=== PATIENT | female | born 1980 | race Caucasian/White ===

== ENCOUNTER 2016-10-11 16:32 | Emergency (ER) | payer OTHER ==
[~2016-10-11] VITALS: Ht 165.1 cm; Wt 57.2 kg
--- NOTE | 2016-10-11 17:20 | PD ---
HPI Chief Complaint Vaginal bleeding Date Seen: Oct 11, 2016 (Tabitha Peterson MD R1) Travel History International Travel<30 Days: No Contact w/Intl Traveler<30Days: No Known Affected Area: No (Tabitha Peterson MD) History of Present Illness HPI Patient is a 36 year old at 18/3 weeks gestation that presents to the [facility] ED with a chief complaint of vaginal bleeding that began as spotting yesterday and progressively got worse. Patient has a history of spotting during this due to a subchorionic hemorrhage that was confirmed on ultrasound. However, on her way to the ED today, she felt an increased flow that soaked her underwear all the way through her jeans. Patient states that she has also been having cramps that began yesterday, became pretty intense, and then went away. She denies trauma of any kind and states that her last sexual encounter was 6 weeks ago. Patient denies fever, chills, nausea, vomiting, diarrhea, chest pain, shortness of breath, upper respiratory symptoms, dysuria. Patient gets her care with Dr. Polo at [facility] in [place], [place] and is in the process of switching to Dr. Lizama in [place]. All her labs have been negative or within normal limits so far. Para: 2 : 4 Miscarriage: 1 : 0 (Tabitha Peterson MD) History Past Medical History Medical History: Denies Significant Hx (Tabitha Peterson MD) Obstetric History Obstetric History 012 -First 2 pregnancies were full-term at at least 39 weeks -Third was a miscarriage, but no fetus was seen on ultrasound (Tabitha Peterson MD) Past Surgical History Narrative Surgical Laparoscopic appendectomy when she was 17 years old (Tabitha Peterson MD) Family History Narrative Family History No family history of diabetes or hypertension (Tabitha Peterson MD) Social History Alcohol Use: No Tobacco Use: No Substance Abuse: No (Tabitha Peterson MD) Allergies-Medications (Allergen,Severity, Reaction): Coded Allergies: No Known Allergies (Unverified , 10/11/16) Review of Systems General / Constitutional: No: Fever, Chills Eyes: No: Visual changes HENT: No: Headaches Cardiovascular: No: Chest Pain or Discomfort Respiratory: No: Cough, Short of Breath Gastrointestinal: No: Nausea, Vomiting, Diarrhea Genitourinary: Vaginal Bleeding, No: Dysuria Musculoskeletal: Cramping Neurologic: No: Headache (Tabitha Peterson MD R1) Physical Exam Narrative GENERAL: Well-nourished, well-developed patient. SKIN: Warm and dry. HEAD: Normocephalic and atraumatic. EYES: No scleral icterus. No injection or drainage. ENT: No nasal drainage noted. Mucous membranes pink. Airway patent. NECK: Supple, trachea midline. No JVD. CARDIOVASCULAR: Regular rate and rhythm without murmurs, gallops, or rubs. RESPIRATORY: Breath sounds equal bilaterally. No accessory muscle use. BREASTS: Bilateral exam showed no masses , no retractions, no nipple discharge. ABDOMEN/GI: Abdomen soft, non-tender, bowel sounds present, no rebound, no guarding Gravid to 18 weeks size GENITOURINARY: External Genitalia: intact and normal in appearance Cervix: closed on US and speculum exam, no active bleeding from the cervical os Dilatation: 0cm Membranes: intact Uterine Contractions: none FHT's: Present in the 150s on Doppler EXTREMITIES: No cyanosis or edema. BACK: Nontender without obvious deformity. No CVA tenderness. NEUROLOGICAL: Awake and alert. Motor and sensory grossly within normal limits. Five out of 5 muscle strength in all muscle groups. Normal speech. (Tabitha Peterson MD R1) Data Data Vital Signs Reviewed: Yes (Tabitha Peterson MD R1) [facility] Medical Record Reviewed: Yes Interpretation(s) 36 year old at 18/3 weeks gestation presents with vaginal bleeding. Plan Intrauterine - heart tones in the 150s on Doppler -Ultrasound showed a hematoma anterior and adjacent to the placenta, good growth and movement, normal ISIDRO, closed cervix - Cervical exam: closed on US and speculum exam, no active bleeding from the cervical os Plan -Discharge home -No strenuous activity -Pelvic rest - no sexual activity, no tampons, no douches -Pt understands that she will continue to have intermittent bleeding and spotting throughout the (Tabitha Peterson MD R1) Medical Record Reviewed: Yes Attending Attestation The exam, history, and the medical decision-making described in the above note were completed with the assistance of the resident provider. I reviewed and agree with the findings presented. I attest that I had a [id number] encounter with the patient on the same day, and personally performed and documented my assessment and findings in the medical record. (Blayne Lerma MD) Diagnosis Diagnosis: Primary Impression: Vaginal bleeding in patient at less than 20 weeks gestation Additional Impression: Subchorionic hemorrhage Disposition: 01 DISCHARGE HOME Condition: Stable Eko,Tabitha Garrido MD R1 Oct 11, 2016 17:20 Blayne Lerma MD Oct 11, 2016 18:56
== END 2016-10-11 19:02 | disposition home or self-care (01) ==
LOC: HOBED 16:32
DX: O46.92 Antepartum hemorrhage, unspecified, second trimester (principal)
CPT/HCPCS: 76816

== ENCOUNTER 2016-10-25 10:05 | Inpatient (IN) | payer OTHER ==
[~2016-10-25] VITALS: Ht 165.1 cm; Wt 59.0 kg
--- NOTE | 2016-10-25 11:50 | PD ---
HPI Chief Complaint vaginal bleeding Date Seen: October 25, 2016 Time Seen: 10:30 Travel History International Travel<30 Days: No Contact w/Intl Traveler<30Days: No Known Affected Area: No History of Present Illness HPI 36 yo female [id number] at 20w [address] Lizama's office due to watery/ bloody discharge and possible rupture of membranes. Patient c/o significant vaginal bleeding for the past 4 weeks, the last 2 weeks have been very heavy, at times going through 5-6 pads per day. Last sonogram 2 weeks ago noted an anterior placenta subchorionic bleed but otherwise normal with adequate cervix length. Denies abdominal or pelvic pain. Para: 2 : 4 : 1 History Past Medical History Medical History: Denies Significant Hx Obstetric History Obstetric History x 2 Past Surgical History Narrative Surgical appendectomy Family History Family History: Negative Social History Alcohol Use: No Tobacco Use: No Substance Abuse: No Allergies-Medications (Allergen,Severity, Reaction): Coded Allergies: No Known Allergies (Unverified , 10/11/16) Review of Systems Except as stated in HPI: all other systems reviewed are Neg Physical Exam Narrative GENERAL: Well-nourished, well-developed patient. SKIN: Warm and dry. HEAD: Normocephalic and atraumatic. EYES: No scleral icterus. No injection or drainage. ENT: No nasal drainage noted. Mucous membranes pink. Airway patent. RESPIRATORY: Breath sounds equal bilaterally. No accessory muscle use. BREASTS: Bilateral exam showed no masses , no retractions, no nipple discharge. ABDOMEN/GI: Abdomen soft, non-tender, bowel sounds present, no rebound, no guarding Gravid to [-20] weeks size Fundal Height: [20-] GENITOURINARY: External Genitalia: intact and normal in appearance BUS glands: [nl-] Cervix: [-cl] Dilatation: [-] Effacement: [-] Station: [-] Presentation: [-] Membranes: [intact or ruptured] amnisure positive Uterine Contractions: [-] FHT's: 152 EXTREMITIES: No cyanosis or edema. BACK: Nontender without obvious deformity. No CVA tenderness. NEUROLOGICAL: Awake and alert. Motor and sensory grossly within normal limits. Five out of 5 muscle strength in all muscle groups. Normal speech. Data Data Vital Signs Reviewed: Yes Orders Vital Signs (Adult) .ON ADMISSION (10/25/16 10:43) ^ Labor Status (10/25/16 10:43) Us Ob Repeat/Fu(Growth) (10/25/16 10:43) Cbc No Diff, Includes Plts (10/25/16 11:23) Type And Screen (10/25/16 11:23) Labs Sonogram performed - formal reading still pending. Overall amniotic fluid appears low but difficult to visualize due to significant amounts of blood in amniotic cavity. Large amount of blood clots are seen in lower uterine segment. FHT 152 Vertex presentation. Biometrics still pending. MDM Medical Record Reviewed: Yes Plan 20 weeks gestation with subchorionic and subamniotic hemorrhage. Possible rupture of membranes with positive amnisure and clinically decreased amniotic fluid on ultrasound Will admit for [address] Lizama notified of admission Diagnosis Diagnosis: Primary Impression: Vaginal bleeding during , antepartum Additional Impression: Decreased amniotic fluid Jessy Carvajal MD October 25, 2016 11:50
[2016-10-25] MEDS ORDERED: ONDANSETRON ODT 4 MG TAB PO PRN (12:00)
[2016-10-25] MEDS ORDERED: SODIUM CHLORIDE 0.9% FLUSH 10 ML FLUSH IV FLUSH PRN (12:00)
[2016-10-25] MEDS ORDERED: ACETAMINOPHEN 325 MG TAB PO PRN (12:00)
[2016-10-25] MEDS ORDERED: ZOLPIDEM TARTRATE 5 MG TAB PO PRN (12:00)
[2016-10-25 12:14] LABS: MEAN CELL VOLUME 89.8 FL (80.0-100.0); MEAN CORPUSCULAR HEMOGLOBIN 31.3 PG (27.0-34.0); MEAN CORPUSCULAR HGB CONC 34.9 % (32.0-36.0); PLATELET COUNT 186 TH/MM3 (150-450); RED BLOOD COUNT 3.57 MIL/MM3 (4.00-5.30); RED CELL DISTRIBUTION WIDTH 13.2 % (11.6-17.2); REVIEW FLAG FINAL; WHITE BLOOD COUNT 11.7 TH/MM3 (4.0-11.0)
[2016-10-25 17:39] VITALS: RESP 20; TEMP 99.6
[2016-10-25 19:41] VITALS: BP 99/65; PULSE 87
[2016-10-25 19:43] VITALS: RESP 18; TEMP 98
[2016-10-25 19:50] VITALS: PULSE 81
[2016-10-25 19:55] VITALS: PULSE 81
[2016-10-26] VITALS (12 sets, daily range): BP systolic 79–96; BP diastolic 49–56; PULSE 75–96; RESP 16–18; TEMP 98.1–98.2
[2016-10-26 05:56] LABS: AUTOMATED NEUTROPHIL # 6.1 TH/MM3 (1.8-7.7); BASOPHIL % 0.2 % (0.0-2.0); EOSINOPHIL # 0.1 TH/MM3 (0-0.4); EOSINOPHIL % 1.1 % (0.0-4.0); HEMATOCRIT 23.4 % (35.0-46.0); HEMO FLAGS DIFF FINAL; LYMPH % 19.7 % (9.0-44.0); LYMPHOCYTE # 1.7 TH/MM3 (1.0-4.8); MEAN CELL VOLUME 88.9 FL (80.0-100.0); MEAN CORPUSCULAR HEMOGLOBIN 31.6 PG (27.0-34.0); MEAN CORPUSCULAR HGB CONC 35.5 % (32.0-36.0); MONO % 7.3 % (0.0-8.0); NEUT % 71.7 % (16.0-70.0); PLATELET COUNT 184 TH/MM3 (150-450); RED BLOOD COUNT 2.63 MIL/MM3 (4.00-5.30); RED CELL DISTRIBUTION WIDTH 12.8 % (11.6-17.2); WHITE BLOOD COUNT 8.5 TH/MM3 (4.0-11.0)
--- NOTE | 2016-10-26 07:30 | HHI.PR ---
Subjective Remarks Doing ok, Still bleeding overnite and used 3 pads that were not soaked, No pain today. Had good BM yesterday. Doing bedrest well, Objective Vital Signs Date Time Temp Pulse Resp B/P Pulse Ox O2 Delivery O2 Flow Rate FiO2 10/26/16 00:33 18 10/26/16 00:28 80 79/50 10/25/16 19:55 81 10/25/16 19:55 81 10/25/16 19:50 81 10/25/16 19:50 81 10/25/16 19:43 98.0 18 10/25/16 19:41 87 99/65 10/25/16 17:39 20 10/25/16 17:39 99.6 Result Diagram: 10/26/16 0448 Other Results Chest is clear CV RRR Abd is soft and NT, Fundus is nice and soft and non tender. Ext no CCE Assessment and Plan Assessment and Plan IUP at 20/4 Severe acute anemia due to blood loss. will start venofer and some IVF now. Will start pericolace to avoid constipation. Will continue bedrest and consider transfusion if H/H goes down. Discussed hysterotomy if bleeding becomes severe. Discussed Condition With Patient..Nurse Rea Discharge Planning Does not meet criteria. She will be here for awhile as this is a serious problem. Claribel Lizama MD October 26, 2016 07:30
[2016-10-26] MEDS: LACTATED RINGER'S 1000 ML INJ 1,000 ML IV SCH ×2 (07:58→17:30)
[2016-10-26] MEDS: SODIUM CHLORIDE 0.9% FLUSH 10 ML FLUSH IV FLUSH SCH ×2 (07:58→21:00)
[2016-10-26] MEDS ORDERED: IBUP-232 PO (08:02)
[2016-10-26] MEDS: MULTIVIT/MIN/PREN/FOL AC/IRON PRENATAL TAB PO SCH ×2 (09:00→10:18)
[2016-10-26] MEDS: IRON SUCROSE INJ 200 MG in SODIUM CHLORIDE 0.9% INJ 100 ML IV SCH (10:18)
[2016-10-26] MEDS: DOCUSATE SODIUM 50 MG/SENNA 8.6 MG TAB PO PRN (10:55)
[2016-10-26 17:44] LABS: HEMATOCRIT 23.5 % (35.0-46.0)
[2016-10-27] VITALS: BP 98/58; PULSE 88; RESP 18; TEMP 98.4
[2016-10-27 04:00] VITALS: BP 100/58
[2016-10-27 04:14] VITALS: BP 87/48; PULSE 81
[2016-10-27 04:18] VITALS: BP 90/47; PULSE 79
[2016-10-27 04:24] VITALS: RESP 18; TEMP 98.6
[2016-10-27] MEDS: SODIUM CHLORIDE 0.9% FLUSH 10 ML FLUSH IV FLUSH SCH ×2 (09:00→21:00)
[2016-10-27] MEDS: IRON SUCROSE INJ 200 MG in SODIUM CHLORIDE 0.9% INJ 100 ML IV SCH (09:24)
[2016-10-27] MEDS: MULTIVIT/MIN/PREN/FOL AC/IRON PRENATAL TAB PO SCH (09:24)
[2016-10-27] MEDS: DOCUSATE SODIUM 50 MG/SENNA 8.6 MG TAB PO PRN (10:57)
[2016-10-27 11:32] LABS: HEMATOCRIT 26.2 % (35.0-46.0); MEAN CELL VOLUME 90.5 FL (80.0-100.0); MEAN CORPUSCULAR HEMOGLOBIN 30.8 PG (27.0-34.0); PLATELET COUNT 211 TH/MM3 (150-450); REVIEW FLAG FINAL; WHITE BLOOD COUNT 9.3 TH/MM3 (4.0-11.0)
[2016-10-27] MEDS: LACTATED RINGER'S 1000 ML INJ 1,000 ML IV SCH ×2 (13:15→13:30)
[2016-10-28] MEDS: LACTATED RINGER'S 1000 ML INJ 1,000 ML IV SCH ×3 (03:35→21:40)
[2016-10-28] MEDS: SODIUM CHLORIDE 0.9% FLUSH 10 ML FLUSH IV FLUSH SCH ×2 (09:00→21:00)
[2016-10-28] MEDS: MULTIVIT/MIN/PREN/FOL AC/IRON PRENATAL TAB PO SCH (09:15)
[2016-10-28] MEDS: IRON SUCROSE INJ 200 MG in SODIUM CHLORIDE 0.9% INJ 100 ML IV SCH (09:15)
--- NOTE | 2016-10-28 12:27 | PD.OB.ANTE ---
Subjective Interval History relatively quiet night did fill one pad quickly and no active bleeding thereafter receiving venofir daily staying in bed and using bed munoz had bowel movement today Antepartum ROS: Denies: New complaints, Loss of fluid, Vaginal bleeding, movement normal, Contractions, Other Objective Physical Exam GENERAL: Well-nourished, well-developed patient. CARDIOVASCULAR: Regular rate and rhythm without murmurs, gallops, or rubs. RESPIRATORY: Breath sounds equal bilaterally. No accessory muscle use. ABDOMEN/GI: Abdomen soft, non-tender. Fundus: [-] GENITOURINARY: External Genitalia: intact and normal in appearance strip reassuring EXTREMITIES: No cyanosis or edema, non-tender, without signs of DVT. Assessment and Plan Assessment and Plan maintain status quo at this point. Goal to get to viability Rekha Tejeda MD October 28, 2016 12:27
[2016-10-28] MEDS: DOCUSATE SODIUM 50 MG/SENNA 8.6 MG TAB PO PRN (12:51)
[2016-10-28 13:48] LABS: HEMATOCRIT 23.1 % (35.0-46.0); REVIEW FLAG FINAL
[2016-10-28] MEDS ORDERED: LIDOCAINE HCL 1% 50 ML VIAL ONE (15:31)
[2016-10-29] VITALS (7 sets, daily range): BP systolic 90–98; BP diastolic 50–62; PULSE 79–88; RESP 16–18; TEMP 97.8–98.1
[2016-10-29 06:38] LABS: HEMATOCRIT 31.5 % (35.0-46.0); REVIEW FLAG FINAL
[2016-10-29] MEDS: SODIUM CHLORIDE 0.9% FLUSH 10 ML FLUSH IV FLUSH SCH ×2 (09:00→21:00)
[2016-10-29] MEDS: MULTIVIT/MIN/PREN/FOL AC/IRON PRENATAL TAB PO SCH (09:35)
--- NOTE | 2016-10-29 09:42 | PD.OB.ANTE ---
Subjective Interval History quiet night received 2 units yesterday and feels better Objective Lab & Micro Results Test 10/28/16 10/28/16 10/29/16 13:35 15:20 05:42 Hemoglobin 8.0 GM/DL 10.8 GM/DL Hematocrit 23.1 % 31.5 % Blood Type O POSITIVE Antibody Screen NEGATIVE Crossmatch Leukocyte-Reduced Red Blood Cells Blood Bank Comment Physical Exam GENERAL: Well-nourished, well-developed patient. CARDIOVASCULAR: Regular rate and rhythm without murmurs, gallops, or rubs. RESPIRATORY: Breath sounds equal bilaterally. No accessory muscle use. ABDOMEN/GI: Abdomen soft, non-tender. fundus c/w dates Membranes: [-] Uterine Contractions: [-] strip with out decels Decels: [-] EXTREMITIES: No cyanosis or edema, non-tender, without signs of DVT. Assessment and Plan Assessment and Plan maintain status quo at this point. Hgb good post transfusion continue bedrest Rekha Tejeda MD October 29, 2016 09:42
[2016-10-29] MEDS: DOCUSATE SODIUM 50 MG/SENNA 8.6 MG TAB PO PRN ×2 (12:02→21:38)
[2016-10-29] MEDS: LACTATED RINGER'S 1000 ML INJ 1,000 ML IV SCH ×2 (18:10→21:38)
[2016-10-30] VITALS (12 sets, daily range): BP systolic 79–100; BP diastolic 49–59; PULSE 72–87; RESP 16–18; TEMP 98–98.6
[2016-10-30] MEDS: LACTATED RINGER'S 1000 ML INJ 1,000 ML IV SCH ×3 (01:15→22:51)
[2016-10-30] MEDS: SODIUM CHLORIDE 0.9% FLUSH 10 ML FLUSH IV FLUSH SCH ×2 (09:00→23:27)
[2016-10-30] MEDS: MULTIVIT/MIN/PREN/FOL AC/IRON PRENATAL TAB PO SCH (10:18)
--- NOTE | 2016-10-30 17:54 | PD.OB.ANTE ---
Subjective Interval History Doing well, good movement. Bleeding is minimal now Objective Vital Signs Vital Signs Date Time Temp Pulse Resp B/P Pulse Ox O2 Delivery O2 Flow Rate FiO2 10/30/16 16:00 98.0 79 18 10/30/16 16:00 92/53 10/30/16 11:40 98.6 79 18 94/53 10/30/16 08:48 98.2 16 10/30/16 08:43 72 100/59 10/30/16 04:29 18 10/30/16 04:17 74 85/52 10/29/16 23:00 18 10/29/16 22:38 98.1 10/29/16 22:38 79 90/51 10/29/16 21:00 18 10/29/16 20:22 88 98/62 Physical Exam GENERAL: Well-nourished, well-developed patient. CARDIOVASCULAR: Regular rate and rhythm without murmurs, gallops, or rubs. RESPIRATORY: Breath sounds equal bilaterally. No accessory muscle use. ABDOMEN/GI: Abdomen soft, non-tender. Fundus: [non tender and soft] FHT's: are present. EXTREMITIES: No cyanosis or edema, non-tender, without signs of DVT. Assessment and Plan Assessment and Plan Continue bedrest For a MFM consultation tomorrow Consider d/c home when stable of keep in house til 24 weeks and then transfer. Claribel Lizama MD October 30, 2016 17:54
[2016-10-31] VITALS (8 sets, daily range): BP systolic 89–102; BP diastolic 58–65; PULSE 77–102; RESP 16–18; TEMP 97.9–98.1
[2016-10-31] MEDS: SODIUM CHLORIDE 0.9% FLUSH 10 ML FLUSH IV FLUSH SCH (09:00)
[2016-10-31] MEDS: MULTIVIT/MIN/PREN/FOL AC/IRON PRENATAL TAB PO SCH (10:00)
[2016-10-31] MEDS: DOCUSATE SODIUM 50 MG/SENNA 8.6 MG TAB PO PRN (10:00)
[2016-10-31] MEDS: LACTATED RINGER'S 1000 ML INJ 1,000 ML IV SCH ×2 (11:20→17:15)
[2016-10-31] MEDS ORDERED: MISOPROSTOL 200 MCG TAB VAGINAL ONE (13:00)
--- NOTE | 2016-10-31 13:09 | HHI.PR ---
Subjective Remarks Doing ok, Still bleeding overnite and used one pad Saw perinatologist this am and recommended delivery. Objective Vital Signs Date Time Temp Pulse Resp B/P Pulse Ox O2 Delivery O2 Flow Rate FiO2 10/31/16 12:54 97.9 18 10/31/16 12:37 77 97/58 10/31/16 08:38 18 10/31/16 08:30 84 102/60 10/31/16 07:24 89/65 10/31/16 07:24 80 10/31/16 07:23 98.1 18 10/30/16 22:51 74 87/54 10/30/16 22:50 79/49 10/30/16 20:31 18 10/30/16 20:10 86 95/55 10/30/16 20:10 98.1 10/30/16 20:09 87 10/30/16 20:04 83 10/30/16 16:00 98.0 79 18 10/30/16 16:00 92/53 Result Diagram: 10/29/16 0542 Objective Remarks Chest is clear CV RRR Abd is soft and non tender. ext no CCE Assessment and Plan Assessment and Plan IUP at 20/5 Severe bleed and perinatologist recommends delivery Long discussion about this. She needs some time to think about this. Will proceed with delivery. Claribel Lizama MD October 31, 2016 13:09
[2016-10-31 13:27] LABS: AUTOMATED NEUTROPHIL # 8.2 TH/MM3 (1.8-7.7); BASOPHIL % 0.1 % (0.0-2.0); EOSINOPHIL # 0.1 TH/MM3 (0-0.4); EOSINOPHIL % 0.6 % (0.0-4.0); HEMATOCRIT 33.3 % (35.0-46.0); HEMO FLAGS DIFF FINAL; LYMPH % 12.9 % (9.0-44.0); LYMPHOCYTE # 1.3 TH/MM3 (1.0-4.8); MEAN CELL VOLUME 92.2 FL (80.0-100.0); MEAN CORPUSCULAR HEMOGLOBIN 30.3 PG (27.0-34.0); MEAN CORPUSCULAR HGB CONC 32.9 % (32.0-36.0); MONO % 5.6 % (0.0-8.0); NEUT % 80.8 % (16.0-70.0); PLATELET COUNT 190 TH/MM3 (150-450); RED BLOOD COUNT 3.61 MIL/MM3 (4.00-5.30); RED CELL DISTRIBUTION WIDTH 14.4 % (11.6-17.2); WHITE BLOOD COUNT 10.1 TH/MM3 (4.0-11.0)
[2016-11-01] VITALS (8 sets, daily range): BP systolic 91–100; BP diastolic 49–60; PULSE 69–99; RESP 18–19; TEMP 97.8–98.2
[2016-11-01] MEDS: LACTATED RINGER'S 1000 ML INJ 1,000 ML IV SCH ×4 (03:15→15:30)
[2016-11-01] MEDS: MISOPROSTOL 200 MCG TAB VAGINAL SCH ×2 (06:00→10:05)
--- NOTE | 2016-11-01 07:30 | HHI.PR ---
Subjective Remarks Doing ok, Still bleeding small amount Slept well, Ready to get the process started. No pain or contractions now Objective Vital Signs Date Time Temp Pulse Resp B/P Pulse Ox O2 Delivery O2 Flow Rate FiO2 11/01/16 06:23 76 91/52 11/01/16 06:15 98.2 18 11/01/16 00:30 98.0 99 18 11/01/16 00:30 69 99/60 10/31/16 19:58 102 98/62 10/31/16 19:58 16 10/31/16 14:00 98.0 10/31/16 12:54 97.9 18 10/31/16 12:37 77 97/58 10/31/16 08:38 18 10/31/16 08:30 84 102/60 Result Diagram: 10/31/16 1255 Objective Remarks Abd is soft and non tender. ext no CCE Assessment and Plan Assessment and Plan IUP at 20/6 Will proceed with delivery. Cytotec given this am and will repeat q4h. Claribel Lizama MD November 01, 2016 07:30
[2016-11-01] MEDS: MULTIVIT/MIN/PREN/FOL AC/IRON PRENATAL TAB PO SCH (09:00)
[2016-11-01] MEDS: SODIUM CHLORIDE 0.9% FLUSH 10 ML FLUSH IV FLUSH SCH ×3 (09:00→21:00)
[2016-11-01] MEDS ORDERED: MISOPROSTOL 200 MCG TAB VAGINAL ONE (14:00)
[2016-11-01] MEDS ORDERED: MISOPROSTOL 200 MCG TAB PO ONE (15:00)
[2016-11-01] MEDS ORDERED: MISOPROSTOL 200 MCG TAB VAGINAL SCH (23:00)
[2016-11-02] MEDS: LACTATED RINGER'S 1000 ML INJ 1,000 ML IV SCH ×2 (08:32→14:40)
[2016-11-02] MEDS: MULTIVIT/MIN/PREN/FOL AC/IRON PRENATAL TAB PO SCH (09:00)
[2016-11-02] MEDS: MISOPROSTOL 200 MCG TAB PO SCH ×2 (09:00→14:39)
[2016-11-02] MEDS ORDERED: MISOPROSTOL 200 MCG TAB PO SCH (14:00)
[2016-11-02] MEDS ORDERED: fentaNYL 2MCG-BUPIV 0.125% INJ 100 ML ONE (14:43)
[2016-11-02] MEDS ORDERED: ePHEDrine/NS 25 MG/5 ML SYR ONE (15:00)
[2016-11-02] MEDS ORDERED: ePHEDrine/NS 25 MG/5 ML SYR IV PRN (15:45)
[2016-11-02] MEDS ORDERED: DO NOT ADMINISTER ANTICOAGULANTS PRN (16:00)
[2016-11-02] MEDS ORDERED: NO SYSTEM NARCOTICS PRN (16:00)
[2016-11-02] MEDS ORDERED: fentaNYL 2MCG-BUPIV 0.125% 100 ML EPIDURAL SCH (16:00)
[2016-11-02 16:45] VITALS: RESP 16
[2016-11-02] MEDS ORDERED: OXYTOCIN 30 UNITS-500ML PREMIX 500 ML ONE (17:39)
--- NOTE | 2016-11-02 19:48 | PD.OB.DELI ---
Anesthesia: Epidural Episiotomy: None Vaginal Delivery: Normal Presentation: Vertex Nuchal Cord: None Delayed cord clamping (45 sec): No : Female One Minute : 0 Five Minute : 0 Weight: 357 gm Placenta: Spontaneous delivery Laceration: No lacerations Masoud Bruner II, MD November 02, 2016 19:48
[2016-11-02] MEDS ORDERED: WITCH HAZEL 50%/GLYCERIN 12.5% 40 PAD JAR TOPICAL PRN (20:30)
[2016-11-02] MEDS ORDERED: ALUMINUM/MAGNESIUM/SIMETH 30 ML CUP PO PRN (20:30)
[2016-11-02] MEDS ORDERED: ONDANSETRON ODT 4 MG TAB PO PRN (20:30)
[2016-11-02] MEDS ORDERED: BENZOCAINE 20% TOPICAL SPRAY 60 ML CAN TOPICAL PRN (20:30)
[2016-11-02] MEDS ORDERED: oxyCODONE/ACETAMINOPHEN 5 MG/325 MG TAB PO PRN (20:30)
[2016-11-02] MEDS ORDERED: IBUPROFEN 600 MG TAB PO PRN (20:30)
[2016-11-02] MEDS ORDERED: DOCUSATE SODIUM 50 MG/SENNA 8.6 MG TAB PO PRN (20:30)
[2016-11-02] MEDS ORDERED: SODIUM CHLORIDE 0.9% FLUSH 10 ML FLUSH IV FLUSH PRN (20:30)
[2016-11-02] MEDS ORDERED: ZOLPIDEM TARTRATE 5 MG TAB PO PRN (20:30)
[2016-11-02] MEDS ORDERED: ACETAMINOPHEN 325 MG TAB PO PRN (20:30)
[2016-11-02] MEDS ORDERED: SODIUM CHLORIDE 0.9% FLUSH 10 ML FLUSH IV FLUSH SCH (21:00)
--- NOTE | 2016-11-03 07:33 | HHI.PR ---
Subjective Remarks Doing ok, Had precip delivery last nite Lost very little blood. Objective Vital Signs Date Time Temp Pulse Resp B/P Pulse Ox O2 Delivery O2 Flow Rate FiO2 11/02/16 16:45 16 Result Diagram: 10/31/16 1255 Objective Remarks Chest is clear CV RRR Abd is soft and non tender. Fundus is non tender ext no CCE Assessment and Plan Assessment and Plan PPD #1 S/P delivery of non viable fetus Ready to go home. Claribel Lizama MD November 03, 2016 07:33
--- NOTE | 2016-11-03 09:46 | HHI.DCPOC ---
Discharge Care Plan Diagnosis: (1) Premature delivery Report Symptoms to Your Doctor -Temperate above 100.5 degrees -Redness, of incision or excessive or foul smelling drainage -Unusual pain or calf pain -Increased vaginal bleeding -Painful or difficulty urinating -Feelings of extreme sadness or anxiety after 2 weeks Goals to Promote Your Health * To prevent worsening of your condition and complications * To maintain your health at the optimal level Directions to Meet Your Goals Take your medications as prescribed Follow your dietary instruction Follow activity as directed Ensure plenty of rest for recovery Drink fluids for hydration Keep your appointments as scheduled Take your immunizations and boosters as scheduled If your symptoms worsen call your PCP, if no PCP go to Urgent Care Center or Emergency Room Smoking is Dangerous to Your Health. Avoid second hand smoke Call the 24-hour crisis hotline for domestic abuse at [facility] November 03, 2016 09:46
--- NOTE | 2016-11-03 09:57 | HHI.DS ---
Admission Date October 26, 2016 at 07:34 Discharge Date: November 03, 2016 Admitting Diagnosis vaginal bleeding possible PPROM with bloody fluid Diagnosis: (1) Premature delivery (maternal condition) Diagnosis: Principal (2) Subchorionic hemorrhage (3) Placental abruption Diagnosis: Secondary Delivery Date: November 02, 2016 Vaginal Delivery: Normal : Female Brief History 36 yo female [id number] at 20w [address] Lizama's office due to watery/ bloody discharge and possible rupture of membranes. Patient c/o significant vaginal bleeding for the past 4 weeks, the last 2 weeks have been very heavy, at times going through 5-6 pads per day. Last sonogram 2 weeks ago noted an anterior placenta subchorionic bleed but otherwise normal with adequate cervix length. Denies abdominal or pelvic pain pt was monitored for days for bleeding and well being vaginal bleeding continued pt received several units of blood seen by PND on 10/31 with dx of abruption and pprom with bloody fluid recommendation of delivery pt induced with cytotec vaginal delivery of non viable . Hospital Course cytotec induction vaginal delivery routine care Pt Condition on Discharge: Good Discharge Disposition: Discharge Home Discharge Instructions Diet Instructions: As Tolerated, No Restrictions Additional Diet Instructions: Drink at least 8 - 16 oz bottles of water a day Activities You Can Perform: Shower Only-No Bath, Sitz Bath Activities to Avoid: Lifting/Bending, Sexual Activity Additional Activity Instruc.: No driving until off pain medications Follow up Referrals: GRAFFIT[facility]ER - 1 Week @ [facility] November 03, 2016 09:57
== END 2016-11-03 13:41 | disposition home or self-care (01) | DRG 774 ==
LOC: HOBED 10:05 → H2EA 12:12 → OBSVTOIN 10-26 07:34 → H2EA 10-31 12:40
PROVIDERS: ADMIT Obstetrics & Gynecology; ATTEND Obstetrics & Gynecology
PROC: 30233N1 Transfusion of Nonautologous Red Blood Cells into Peripheral Vein, Percutaneous Approach (ICD-10-PCS; 2016-10-28)
PROC: 10E0XZZ Delivery of Products of Conception, External Approach (ICD-10-PCS; principal; 2016-11-02)
PROC: 3E0P7GC Introduction of Other Therapeutic Substance into Female Reproductive, Via Natural or Artificial Opening (ICD-10-PCS; 2016-11-02)
PROC: 3E0S3CZ (ICD-10-PCS; 2016-11-02)
PROC: 00HU33Z Insertion of Infusion Device into Spinal Canal, Percutaneous Approach (ICD-10-PCS; 2016-11-02)
DX: O46.8X2 Other antepartum hemorrhage, second trimester (principal); O45.92 Premature separation of placenta, unspecified, second trimester; O99.012 Anemia complicating pregnancy, second trimester; D62 Acute posthemorrhagic anemia; O62.3 Precipitate labor; Z37.1 Single stillbirth; Z3A.21 21 weeks gestation of pregnancy
CPT/HCPCS: 36430; 76815; 76816; 84112; 85014; 85018; 85025; 85027; 86850; 86900; 86901; 86920; 88305; 88307; G0378; J1756; J2590; J3010; J7120; P9016